=== PATIENT | male | born 1970 | race Caucasian/White ===

== ENCOUNTER 2021-12-10 21:55 | Emergency (ER) | payer BC ==
[2021-12-11] MEDS ORDERED: DIAZEPAM 5 MG TABLET ONE (01:01)
[2021-12-11] MEDS ORDERED: KETOROLAC 30 MG/ML INJ ONE (01:01)
[2021-12-11] MEDS ORDERED: LIDOCAINE 4% PATCH ONE (01:01)
--- NOTE | 2021-12-11 01:53 | EDPHYS ---
Physician Documentation [facility] Name: Gonzales Lassiter Age: 51 yrs Sex: Male : 1970 Arrival Date: 12/10/2021 Time: 21:57 Bed 5 Private MD: ED Physician Bobo Rodriguez HPI: 12/11 00:53 This 51 yrs old Male presents to ER via Ambulatory with complaints of Neck and Upper pm1 Back Pain, Stiff Neck, Low Back Pain. 00:53 The patient or guardian complains of pain. The symptoms are located on the right pm1 trapezius, right scapular area and right subscapular area. Onset: The symptoms/episode began/occurred 1 week(s) ago. Context: The problem was sustained at home, The neck injury/problem resulted from from unknown cause. Associated signs and symptoms: Pertinent negatives: fever, headache, numbness, tingling, weakness. The pain does not radiate. Modifying factors: the symptoms are aggravated by turning head to the left. Severity of symptoms: in the emergency department the symptoms are actually worse. The patient has not experienced similar symptoms in the past. The patient has not recently seen a physician. Historical: - Allergies: 12/10 22:14 No Known Allergies; vc1 - Home Meds: 22:14 Levothyroxine daily [Active]; metformin 1,000 mg Oral tab 1 tab 2 times per day vc1 [Active]; - PMHx: 22:14 Thyroid problem; Diabetes mellitus; vc1 - PSHx: 22:14 None; vc1 - Immunization history:: Adult Immunizations up to date, Client reports having NOT received the Covid vaccine. Flu vaccine is not up to date. - Social history:: Smoking status: Patient reports the use of cigarette tobacco products, smokes one pack cigarettes per day. ROS: 12/11 00:53 Constitutional: Negative for fever, chills, and weight loss. pm1 Cardiovascular: Negative for chest pain, palpitations, and edema, Respiratory: Negative for shortness of breath, cough, wheezing, and pleuritic chest pain, MS/Extremity: Negative for injury and deformity, Skin: Negative for injury, rash, and discoloration, Neuro: Negative for headache, weakness, numbness, tingling, and seizure. Neck: Positive for pain with movement, tenderness, Negative for bony tenderness. All other systems are negative. Exam: 00:53 Constitutional: This is a well developed, well nourished patient who is awake, alert, pm1 and in no acute distress. Head/Face: Normocephalic, atraumatic. 00:53 Skin: Warm, dry with normal turgor. Normal color with no rashes, no lesions, and no evidence of cellulitis. MS/ Extremity: Pulses equal, no cyanosis. Neurovascular intact. Full, normal range of motion. 00:53 Neck: External neck: tenderness, of the right trapezius. 00:53 Cardiovascular: Exam negative for acute changes, Rate: normal, Rhythm: regular, Pulses: no pulse deficits are appreciated. 00:53 Respiratory: Exam negative for acute changes, respiratory distress, shortness of breath. 00:53 Back: vertebral tenderness, is not appreciated, muscle spasm, is appreciated in the right scapular area, right subscapular area and right mid back. 00:53 Neuro: Exam negative for acute changes, Orientation: is normal, Mentation: is normal, Motor: is normal, moves all fours. Vital Signs: 03 22:14 BP 128 / 84 RA Sitting (auto/reg); Pulse 85; Resp 20; Temp 98.6(O); Pulse Ox 98% ; vc1 Weight 71.67 kg; Height 5 ft. 8 in. (172.72 cm); Pain 5/10; 22:19 BP 128 / 84 RA Sitting (auto/reg); Pulse 85 RA; Resp 20 S; Temp 98.6(O); Pulse Ox 98% vc1 on R/A; 12/11 00:11 BP 145 / 79; Pulse 77; Resp 18; Pulse Ox 100% on R/A; Pain 3/10; tw5 01:07 BP 147 / 86; Pulse 76; Resp 20 S; Pulse Ox 100% on R/A; as6 02:12 BP 113 / 80; Pulse 78; Resp 20 S; Pulse Ox 99% on R/A; as6 03/ 22:14 Body Mass Index 24.02 (71.67 kg, 172.72 cm) vc1 MDM: 00:40 Patient medically screened. pm1 00:53 Differential diagnosis: arthritis, torticollis, muscle sprain, muscle spasm, meningitis.pm1 01:51 Data reviewed: vital signs. Data interpreted: Pulse oximetry: on room air is 100 %. pm1 Interpretation: normal. Counseling: I had a detailed discussion with the patient and/or guardian regarding: the historical points, exam findings, and any diagnostic results supporting the discharge/admit diagnosis, the need for outpatient follow up, to return to the emergency department if symptoms worsen or persist or if there are any questions or concerns that arise at home. 01:57 ED course: [place] reviewed. pm1 Administered Medications: 01:05 Drug: Ketorolac 60 mg Route: IM; Site: right ventrogluteal; as6 02:12 Follow up: Response: No adverse reaction as6 01:05 Drug: Lidoderm Patch 5 % (700 mg/patch) 1 patches Route: Topical; Site: affected area; as6 02:12 Follow up: Response: No adverse reaction as6 01:06 Drug: Valium (diazepam) 5 mg Route: PO; as6 02:12 Follow up: Response: No adverse reaction as6 Disposition: 03:22 Co-signature as Attending Physician, Bobo Rodriguez MD. mh7 Disposition Summary: 12/11/21 01:51 Discharge Ordered Location: Home pm1 Problem: new pm1 Symptoms: have improved pm1 Condition: Stable pm1 Diagnosis - Strain of muscle, fascia and tendon at neck level pm1 - Strain of muscle and tendon of back wall of thorax pm1 Followup: pm1 - With: Emergency Department - When: As needed - Reason: Worsening of condition Followup: pm1 - With: Private Physician - When: 2 - 3 days - Reason: Recheck today's complaints, Continuance of care, Re-evaluation by your physician Discharge Instructions: - Discharge Summary Sheet pm1 - Muscle Strain pm1 Forms: - Medication Reconciliation Form pm1 - Thank You Letter pm1 - Antibiotic Education pm1 - Prescription Opioid Use pm1 Prescriptions: - Lidoderm 5 % Topical adhesive patch,medicated - apply 1 patch by TRANSDERMAL route once daily As needed; 10 patch; Refills: 0, pm1 Product Selection Permitted - Valium 5 mg Oral Tablet - take 1 tablet by ORAL route every 8 hours As needed; 6 tablet; Refills: 0, pm1 Product Selection Permitted - Diclofenac Sodium 75 mg Oral tablet,delayed release (DR/EC) - take 1 tablet by ORAL route 2 times per day As needed; 30 tablet; Refills: 0, pm1 Product Selection Permitted Signatures: Marcial Elizabeth, COMMUTATOR INSPECTOR COMMUTATOR INSPECTOR pm1 Bobo Rodriguez MD MD mh7 Julián Castro RN RN as6 Estephania Sanches RN RN vc1
--- NOTE | 2021-12-11 01:53 | ER ---
Nurse's Notes [facility] Name: Gonzales Lassiter Age: 51 yrs Sex: Male : 1970 Arrival Date: 12/10/2021 Time: 21:57 Bed 5 Private MD: Diagnosis: Strain of muscle, fascia and tendon at neck level;Strain of muscle and tendon of back wall of thorax Presentation: 12/10 22:13 Chief complaint: Patient states: I have a pain that has been in my back and has vc1 radiated to my neck, now I can't move my head without pain. Coronavirus screen: Vaccine status: Patient reports being unvaccinated. Ebola Screen: No symptoms or risks identified at this time. Risk Assessment: Do you want to hurt yourself or someone else? Patient reports no desire to harm self or others. Onset of symptoms is unknown. 22:13 Method Of Arrival: Ambulatory vc1 22:13 Acuity: SHANDA 4 vc1 22:19 Initial Sepsis Screen: Does the patient meet any 2 criteria? No. Patient's initial vc1 sepsis screen is negative. Does the patient have a suspected source of infection? No. Patient's initial sepsis screen is negative. Triage Assessment: 22:14 General: Appears in no apparent distress. uncomfortable, Behavior is calm, cooperative, vc1 appropriate for age. Pain: Complains of pain in left trapezius and left scapular area Pain radiates to right lateral aspect of neck Pain currently is 5 out of 10 on a pain scale. at worst was 10 out of 10 on a pain scale. Quality of pain is described as sharp, pulsating. Historical: - Allergies: 22:14 No Known Allergies; vc1 - Home Meds: 22:14 Levothyroxine daily [Active]; metformin 1,000 mg Oral tab 1 tab 2 times per day vc1 [Active]; - PMHx: 22:14 Thyroid problem; Diabetes mellitus; vc1 - PSHx: 22:14 None; vc1 - Immunization history:: Adult Immunizations up to date, Client reports having NOT received the Covid vaccine. Flu vaccine is not up to date. - Social history:: Smoking status: Patient reports the use of cigarette tobacco products, smokes one pack cigarettes per day. Screenin/07 00:11 Abuse screen: Denies threats or abuse. Denies injuries from another. Nutritional tw5 screening: No deficits noted. Tuberculosis screening: No symptoms or risk factors identified. Fall Risk No fall in past 12 months (0 pts). Assessment: 00:11 General: Reports "I am having stickness in my neck, pain, I cannot turn my head. It tw5 started in my back, worked my way up my shoulder and further up my neck. I cannot move it side to side without it being painful. I am still having pain in my back close to my spine." Denies any recent falls or accidents. Pain: Complains of pain in right subscapular area Pain radiates to posterior cervical area, right trapezius, right scapular area and right subscapular area Pain currently is 3 out of 10 on a pain scale. at worst was 10 out of 10 on a pain scale. Quality of pain is described as aching, "It I turn my head it becomes a sharp pain.". Neuro: Level of Consciousness is awake, alert, obeys commands, Oriented to person, place, time, situation. Respiratory: Airway is compromised Trachea midline Respiratory effort is even, unlabored, Breath sounds are clear bilaterally. Musculoskeletal: Range of motion: intact in all extremities. Vital Signs: 12/10 22:14 BP 128 / 84 RA Sitting (auto/reg); Pulse 85; Resp 20; Temp 98.6(O); Pulse Ox 98% ; vc1 Weight 71.67 kg; Height 5 ft. 8 in. (172.72 cm); Pain 5/10; 22:19 BP 128 / 84 RA Sitting (auto/reg); Pulse 85 RA; Resp 20 S; Temp 98.6(O); Pulse Ox 98% vc1 on R/A; 12/11 00:11 BP 145 / 79; Pulse 77; Resp 18; Pulse Ox 100% on R/A; Pain 3/10; tw5 01:07 BP 147 / 86; Pulse 76; Resp 20 S; Pulse Ox 100% on R/A; as6 02:12 BP 113 / 80; Pulse 78; Resp 20 S; Pulse Ox 99% on R/A; as6 12/10 22:14 Body Mass Index 24.02 (71.67 kg, 172.72 cm) vc1 ED Course: 12/10 21:57 Patient arrived in ED. jj6 22:14 Triage completed. vc1 12/11 00:07 Marcial Elizabeth NP is PHCP. pm1 00:07 Bobo Rodriguez MD is Attending Physician. pm1 00:08 Julián Castro, KOBY is Primary Nurse. as6 00:09 Arm band placed on. as6 00:10 Primary Nurse role handed off by Julián Castro, KOBY tw5 00:10 Jen Castaneda is Primary Nurse. tw5 00:11 Patient has correct armband on for positive identification. Placed in gown. Bed in low tw5 position. Side rails up X 1. Adult w/ patient. monitoring tech on. Pulse ox on. NIBP on. Door closed. Noise minimized. Moved to private room. Warm blanket given. Verbal reassurance given. Administered Medications: 01:05 Drug: Ketorolac 60 mg Route: IM; Site: right ventrogluteal; as6 02:12 Follow up: Response: No adverse reaction as6 01:05 Drug: Lidoderm Patch 5 % (700 mg/patch) 1 patches Route: Topical; Site: affected area; as6 02:12 Follow up: Response: No adverse reaction as6 01:06 Drug: Valium (diazepam) 5 mg Route: PO; as6 02:12 Follow up: Response: No adverse reaction as6 Outcome: 01:51 Discharge ordered by . pm1 02:13 Patient left the ED. as6 Signatures: Marcial Elizabeth NP TERRITORY REPRESENTATIVE pm1 Jen Castaneda tw5 QuangTereza jj6 Julián Castro RN RN as6 Estephania Sanches RN RN vc1
[2021-12-11 02:18] VITALS: TEMP 98.6
[2021-12-11 02:24] VITALS: BP 113/80; O2SAT 99
== END 2021-12-11 02:13 | disposition home or self-care (01) ==
LOC: ER 21:55
DX: S16.1XXA Strain of muscle, fascia and tendon at neck level, initial encounter (principal); S29.012A Strain of muscle and tendon of back wall of thorax, initial encounter; E11.9 Type 2 diabetes mellitus without complications; E07.9 Disorder of thyroid, unspecified; F17.210 Nicotine dependence, cigarettes, uncomplicated
CPT/HCPCS: 96372; 99284

== ENCOUNTER 2022-05-12 20:37 | Emergency (ER) | payer BC ==
--- NOTE | 2022-05-12 21:01 | ER ---
Nurse's Notes [facility] Name: Gonzales Lassiter Age: 51 yrs Sex: Male : 1970 Arrival Date: 05/12/2022 Time: 20:39 Bed 6 Private MD: Diagnosis: Coronavirus infection, unspecified Presentation: 05/12 20:43 Chief complaint: Patient states: tested positive for COVID today reports fever today of kl 103 wants Paxlovid injestion. Coronavirus screen: Vaccine status: Patient reports being unvaccinated. Ebola Screen: Patient negative for fever greater than or equal to 101.5 degrees Fahrenheit, and additional compatible Ebola Virus Disease symptoms. Initial Sepsis Screen: Does the patient meet any 2 criteria? No. Patient's initial sepsis screen is negative. Does the patient have a suspected source of infection? No. Patient's initial sepsis screen is negative. Risk Assessment: Do you want to hurt yourself or someone else? Patient reports no desire to harm self or others. Onset of symptoms was May 12, 2022. 20:43 Method Of Arrival: Ambulatory 20:43 Acuity: SHANDA 4 kl Triage Assessment: 20:47 General: Appears in no apparent distress. Behavior is calm, cooperative. Pain: Denies pain. Historical: - Allergies: 20:46 No Known Allergies; kl - Home Meds: 20:46 Levothyroxine daily [Active]; metformin 1,000 mg Oral tab 1 tab 2 times per day kl [Active]; glaxambi [Active]; - PMHx: 20:46 diabetes mellitus; Thyroid problem; - PSHx: 20:46 None; kl - Immunization history:: Adult Immunizations not up to date. - Social history:: Smoking status: Patient reports the use of cigarette tobacco products, smokes one pack cigarettes per day. Screenin:08 Abuse screen: Denies threats or abuse. Denies injuries from another. Nutritional tw5 screening: No deficits noted. Tuberculosis screening: No symptoms or risk factors identified. Fall Risk None identified. Assessment: 21:08 General: Appears in no apparent distress. Behavior is calm, cooperative, appropriate tw5 for age. Vital Signs: 20:43 BP 121 / 81; Pulse 102; Resp 18; Temp 99.2; Pulse Ox 100% on R/A; Weight 66.22 kg (R); Height 5 ft. 8 in. (172.72 cm); Pain 0/10; 20:43 Body Mass Index 22.20 (66.22 kg, 172.72 cm) ED Course: 20:39 Patient arrived in ED. bp1 20:46 Triage completed. 20:48 Lore Leiva FNP-C [facility] kb 20:48 Bobo Rodriguez MD is Attending Physician. kb 20:50 Jen Castaneda is Primary Nurse. tw5 21:08 Patient has correct armband on for positive identification. Door closed. Noise tw5 minimized. Moved to private room. 21:08 No provider procedures requiring assistance completed. Patient did not have IV access tw5 during this emergency room visit. 21:09 Patient placed in an exam room. tw5 Administered Medications: No medications were administered Medication: 21:08 VIS not applicable for this client. tw5 Outcome: 21:00 Discharge ordered by MD. kb 21:08 Discharged to home ambulatory. tw5 21:08 Condition: good 21:08 Discharge instructions given to patient, Instructed on discharge instructions, follow up and referral plans. medication usage, Demonstrated understanding of instructions, follow-up care, medications, Prescriptions given X 1. 21:09 Patient left the ED. tw5 Signatures: Lore Leiva FNP-C FNP-Ckb Lewis, Kimberly, RN RN Lisa Abreu Tiffany tw5
--- NOTE | 2022-05-12 21:01 | EDPHYS ---
Physician Documentation [facility] Name: Gonzales Lassiter Age: 51 yrs Sex: Male : 1970 Arrival Date: 05/12/2022 Time: 20:39 Bed 6 Private MD: ED Physician Bobo Rodriguez HPI: 05/12 22:43 This 51 yrs old Male presents to ER via Ambulatory with complaints of Fever. kb 22:43 The patient or guardian reports flu symptoms, low-grade fever, myalgias. Onset: The kb symptoms/episode began/occurred today. Severity of symptoms: At their worst the symptoms were moderate, in the emergency department the symptoms are unchanged. Modifying factors: The symptoms are alleviated by nothing, the symptoms are aggravated by nothing. Associated signs and symptoms: Pertinent positives: fever, Pertinent negatives: chest pain, diarrhea, ear ache, nausea, rhinorrhea, sore throat, vomiting. The patient has not experienced similar symptoms in the past. The patient has not recently seen a physician. Patient states he started having low back pain today that progressed to fever, chills, body aches. Tested himself for COVID at home and was positive. Came in for Paxlovid prescription. Historical: - Allergies: 20:46 No Known Allergies; kl - Home Meds: 20:46 Levothyroxine daily [Active]; metformin 1,000 mg Oral tab 1 tab 2 times per day kl [Active]; glaxambi [Active]; - PMHx: 20:46 diabetes mellitus; Thyroid problem; kl - PSHx: 20:46 None; - Immunization history:: Adult Immunizations not up to date. - Social history:: Smoking status: Patient reports the use of cigarette tobacco products, smokes one pack cigarettes per day. ROS: 22:44 Respiratory: Negative for shortness of breath, cough, wheezing, and pleuritic chest kb pain. 22:44 Constitutional: Positive for body aches, chills, fever, Negative for fatigue, malaise, poor PO intake, weight loss. 22:44 Back: Positive for pain at rest. 22:44 All other systems are negative. Exam: 22:44 Constitutional: This is a well developed, well nourished patient who is awake, alert, kb and in no acute distress. Head/Face: Normocephalic, atraumatic. ENT: Moist Mucous membranes Cardiovascular: Regular rate and rhythm with a normal S1 and S2. No gallops, murmurs, or rubs. No pulse deficits. Respiratory: Respirations even and unlabored. No increased work of breathing. Talking in full sentences Skin: Warm, dry with normal turgor. Normal color. MS/ Extremity: Pulses equal, no cyanosis. Neurovascular intact. Full, normal range of motion. Neuro: Awake and alert, GCS 15, oriented to person, place, time, and situation. Moves all extremities. Normal gait. Psych: Awake, alert, with orientation to person, place and time. Behavior, mood, and affect are within normal limits. Vital Signs: 20:43 BP 121 / 81; Pulse 102; Resp 18; Temp 99.2; Pulse Ox 100% on R/A; Weight 66.22 kg (R); kl Height 5 ft. 8 in. (172.72 cm); Pain 0/10; 20:43 Body Mass Index 22.20 (66.22 kg, 172.72 cm) kl MDM: 20:48 Patient medically screened. kb 22:43 Data reviewed: vital signs, nurses notes. Data interpreted: Pulse oximetry: on room air kb is 100 %. Interpretation: normal. Counseling: I had a detailed discussion with the patient and/or guardian regarding: the historical points, exam findings, and any diagnostic results supporting the discharge/admit diagnosis, the need for outpatient follow up, a family practitioner, to return to the emergency department if symptoms worsen or persist or if there are any questions or concerns that arise at home. Administered Medications: No medications were administered Disposition: 05/13 06:17 Co-signature as Attending Physician, Bobo Rodriguez MD. mh7 Disposition Summary: 05/12/22 21:00 Discharge Ordered Location: Home kb Condition: Stable kb Diagnosis - Coronavirus infection, unspecified kb Followup: kb - With: Emergency Department - When: As needed - Reason: Worsening of condition Followup: kb - With: Private Physician - When: 2 - 3 days - Reason: Recheck today's complaints, Continuance of care, Re-evaluation by your physician Discharge Instructions: - Discharge Summary Sheet kb - Viral Respiratory Infection, [id number] kb - COVID-19 kb Forms: - Medication Reconciliation Form kb - Thank You Letter kb - Antibiotic Education kb - Prescription Opioid Use kb Prescriptions: - Paxlovid (EUA) 150 mg x 2- 100 mg Oral tablet - take 3 tablet by ORAL route 2 times per day for 5 days per package directions; kb 30 tablet; Refills: 0, Product Selection Permitted Signatures: Lore Leiva FNP-C FNP-Ckb Lewis, Kimberly, RN RN Bobo Diaz MD MD mh7
[2022-05-12 21:46] VITALS: BP 121/81; TEMP 99.2; O2SAT 100
== END 2022-05-12 21:09 | disposition home or self-care (01) ==
LOC: ER 20:37
DX: U07.1 COVID-19 (principal); E11.9 Type 2 diabetes mellitus without complications; E07.9 Disorder of thyroid, unspecified; F17.210 Nicotine dependence, cigarettes, uncomplicated
CPT/HCPCS: 99282